=== PATIENT | male | born 1965 | race Caucasian/White ===

== ENCOUNTER 2021-02-05 20:42 | Emergency (ER) | payer OTHER ==
[~2021-02-05] VITALS: Ht 182.9 cm; Wt 90.3 kg
[2021-02-05] MEDS ORDERED: LOSARTAN-HCTZ1 EAC3 PO (21:06)
[2021-02-05 21:46] LABS: ABSOLUTE EOSINOPHILS 0.2 thou/uL (0.0-0.7); ABSOLUTE LYMPHOCYTES 1.8 thou/uL (0.8-5.3); ABSOLUTE MONOCYTES 0.7 thou/uL (0.0-1.2); ABSOLUTE NEUTROPHILS 2.1 thou/uL (1.6-8.1); BASOPHILS 0.6 %; EOSINOPHILS 3.6 %; HEMATOCRIT 43.2 % (42.0-52.0); HEMOGLOBIN 14.8 gm/dL (14.0-18.0); LYMPHOCYTES 37.1 %; MCH 31.1 pg (26.0-34.0); MCHC 34.2 g/dL (28.0-37.0); MCV 91.1 fL (80.0-100.0); MONOCYTES 15.1 %; MPV 9.5 fl. (7.2-11.1); NUCLEATED RBCS 0 /100WBC; PLATELET COUNT* 229 thou/uL (150-400); POLYS 43.6 %; RBC 4.75 mil/uL (4.50-6.00); WBC 4.8 thou/uL (4.0-11.0)
[2021-02-05 21:54] LABS: CALCIUM 8.6 mg/dL (8.5-10.1)
[2021-02-05 21:57] LABS: APTT 25.4 Seconds (25.0-31.3); PROTIME 10.2 Seconds (9.20-11.50)
[2021-02-05 22:06] LABS: ALBUMIN 3.6 g/dL (3.4-5.0); TOTAL BILIRUBIN 0.3 mg/dL (<0.1-1.0); TOTAL PROTEIN 6.7 g/dL (6.4-8.2)
[2021-02-05] MEDS ORDERED: TORADOL 10 MG T10 MG PO (23:45)
[2021-02-05] MEDS ORDERED: NORFLEX100 MG PO (23:45)
[2021-02-05 23:55] VITALS: BP 160/88
--- NOTE | 2021-02-06 14:26 | EKG ---
[place] [address] ELECTROCARDIOGRAM REPORT Name: HUSSEIN COBOS Room: [facility]#: [id number] Admission: 02/05/21 Attend Phys: Discharge: 02/05/21 Date of : 67 Date of Service: 02/05/212121 Report #: [id number] THIS REPORT FOR: //name// [facility] ED Test Date: 2021-02-05 Test Time: 21:22:44 Pat Name: HUSSEIN COBOS Department: Room: Gender: Clinical Dietitian: [facility] : 1965 Requested By: Kenia Mcfarland Order Number: [id number] MD: Jose M Saenz Measurements Intervals [place] Rate: 58 P: 17 TX: 192 QRS: -29 QRSD: 124 T: -13 QT: 432 QTc: 425 Interpretive Statements Sinus rhythm IVCD, consistent with incomplete right bundle branch block No previous ECG available for comparison Electronically Signed On 02-06-2021 14:26:02 CDT by Jose M Saenz [email or web address] <ELECTRONICALLY SIGNED> By: Jose M Saenz MD, [facility] 02/06/21 1426 21 21 Jose M Saenz MD, [facility] /EPI
== END 2021-02-05 23:55 | disposition home or self-care (01) ==
LOC: M.ERS 20:42
PROVIDERS: Personal Emergency Response Attendant
DX: R51.9 Headache, unspecified (principal); M62.838 Other muscle spasm; I10 Essential (primary) hypertension; Z79.899 Other long term (current) drug therapy; Z88.0 Allergy status to penicillin